=== PATIENT | female | born 1970 | race Caucasian/White ===

== ENCOUNTER 2017-01-26 13:04 | Emergency (ER) | payer MEDICAID ==
[~2017-01-26] VITALS: Ht 172.7 cm; Wt 104.0 kg
[2017-01-26 13:07] VITALS: BP 113/73; PULSE 71; RESP 18; TEMP 98.3; O2SAT 96
[2017-01-26] MEDS ORDERED: FENO1TAB76 PO (13:26)
[2017-01-26] MEDS ORDERED: ALPR.25 PO (13:26)
[2017-01-26] MEDS ORDERED: PRIL20CA9 PO (13:26)
[2017-01-26] MEDS ORDERED: ATEN25TA PO (13:26)
[2017-01-26] MEDS ORDERED: LISI10TA3 PO (13:26)
[2017-01-26] MEDS ORDERED: BENA25TA3 PO (13:26)
[2017-01-26] MEDS ORDERED: HYDR.5%T TOPICAL (13:40)
[2017-01-26] MEDS ORDERED: PRED20 PO (13:40)
[2017-01-26] MEDS ORDERED: VIST50CA PO (13:40)
[2017-01-26] MEDS ORDERED: PERM5CRE11 TOPICAL (13:40)
--- NOTE | 2017-01-26 13:45 | PD ---
HPI Chief Complaint: Skin Problem Time Seen by Provider: 13:40 Travel History International Travel<30 days: No Contact w/Intl Traveler<30days: No Traveled to known affect area: No History of Present Illness HPI 46-year-old female that presents to the ED for evaluation of itchy rash. Per patient she's had this for the past couple of days. Per patient nobody else in her house has this. She is visiting here for bike weak and states that she's had rashes before but not like this. 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 Per patient he started on the extremities and with moving to the chest. Again she denies any new contacts. No new creams. No new foods. She states that she used to live in [place] but hasn't lived in [place] for a while. She states that she staying at a friend's house and none of them have anything like her ears. She does have multiple allergies to medication. She is entirely and Benadryl with minimal relief. She has no other medical complaints at this time. No pain but very pruritic. Has been progressively getting worse for the past couple of days. PFSH Past Medical History Anxiety: Yes Cardiovascular Problems: Yes (HTN) Diminished Hearing: No Tetanus Vaccination: Unknown Influenza Vaccination: No ?: Not Past Surgical History Abdominal Surgery: Yes Appendectomy: Yes Cholecystectomy: Yes Hysterectomy: Yes Tonsillectomy: Yes Social History Alcohol Use: No Tobacco Use: No Substance Use: No Allergies-Medications (Allergen,Severity, Reaction): Coded Allergies: Bee Sting (Verified Allergy, Severe, Anaphylaxis, 01/26/17) Erythromycin (Verified Allergy, Severe, Rash, 01/26/17) Macrodantin (Verified Allergy, Severe, Rash, 01/26/17) Penicillin (Verified Allergy, Severe, Rash, 01/26/17) Theophylline (Verified Allergy, Severe, Anaphylaxis, 01/26/17) Uncoded Allergies: TEQUILA (Allergy, Severe, Anaphylaxis, 01/26/17) Reported Meds & Prescriptions Reported Meds & Active Scripts Active Reported Benadryl Allergy (Diphenhydramine HCl) 25 Mg Tab 50 Mg PO Q6H PRN Xanax (Alprazolam) 0.25 Mg Tab 0.25 Mg PO Q4H PRN Prilosec (Omeprazole) 20 Mg Cap 40 Mg PO DAILY Tricor (Fenofibrate) 48 Mg Tab 48 Mg PO DAILY Tke with food. Lisinopril 10 Mg Tab 10 Mg PO DAILY Atenolol 25 Mg Tab 75 Mg PO DAILY Review of Systems Except as stated in HPI: all other systems reviewed are Neg Physical Exam Narrative GENERAL: SKIN: Warm and dry. Patient has hives looking like rash on both bite like ch on the upper and lower extremities. Pruritic and not painful. No pustules. No lymphadenopathy noted. Motor mainly on the upper and lower extremities as well as in the chest. Seems with female nurse present. HEAD: Atraumatic. Normocephalic. EYES: Pupils equal and round. No scleral icterus. No injection or drainage. ENT: No nasal bleeding or discharge. Mucous membranes pink and moist. NECK: Trachea midline. No JVD. CARDIOVASCULAR: Regular rate and rhythm. RESPIRATORY: No accessory muscle use. Clear to auscultation. Breath sounds equal bilaterally. GASTROINTESTINAL: Abdomen soft, non-tender, nondistended. Hepatic and splenic margins not palpable. MUSCULOSKELETAL: Extremities without clubbing, cyanosis, or edema. No obvious deformities. NEUROLOGICAL: Awake and alert. No obvious cranial nerve deficits. Motor grossly within normal limits. Five out of 5 muscle strength in the arms and legs. Normal speech. PSYCHIATRIC: Appropriate mood and affect; insight and judgment normal. Data Data Last Documented VS Vital Signs Date Time Temp Pulse Resp B/P Pulse Ox O2 Delivery O2 Flow Rate FiO2 01/26/17 13:07 98.3 71 18 113/73 96 MDM Medical Decision Making Medical Screen Exam Complete: Yes Emergency Medical Condition: Yes Medical Record Reviewed: Yes Differential Diagnosis Insect bites versus allergic dermatitis versus dermatitis versus scabies versus bed bugs Narrative Course 46-year-old female that presents to the ED for evaluation of itchy rash. Patient was properly examined and was found to have signs and symptoms very consistent with bug bites. No sign of infection. There appeared to be very itchy and pruritic. Do not appear to be bed bugs or scabies at this time. Unclear bowel causing it. Does appear to be allergic. At this time recommend trial of prednisone, Vistaril, hydrocortisone and topical and Elimite topical to cover for any other organ is symptomatic causing this. I recommend washing everything before getting home to prevent bug from traveling with her. See ED if worst. Diagnosis Primary Impression: Insect bites Qualified Code: W57.XXXA - Insect bites, initial encounter Patient Instructions: General Instructions Additional Instructions: Take medications as prescribed. Follow with PCP. See ED worsening symptoms. Stop Benadryl he can be taking Vistaril. Wash all of her clothes in hot water as well as any sheets or luggage to you might have brought to make sure the bug does not travel with you. Med/Other Pt SpecificInfo: Prescription(s) given Scripts Permethrin Topical (Elimite Topical)5% Cream1 Applic TOPICAL ONCE #1 TUBE Ref 1 Prov:Abiel Berg MD 01/26/17 Hydrocortisone Topical 0.5% Oint1 Applic TOPICAL QID 14 Days Prov:Abiel Berg MD 01/26/17 Prednisone 20 Mg Tab20 Mg PO BID #10 TAB Prov:Abiel Berg MD 01/26/17 Hydroxyzine Pamoate (Vistaril)50 Mg Cap50 Mg PO TID PRN (ITCHING) #20 CAP Ref 0 Prov:Abiel Berg MD 01/26/17 Disposition: 01 DISCHARGE HOME Condition: Stable Manuel Rich Jan 26, 2017 13:45
== END 2017-01-26 13:54 | disposition home or self-care (01) ==
LOC: PHEFT 13:04
DX: S40.862A Insect bite (nonvenomous) of left upper arm, initial encounter (principal); S40.861A Insect bite (nonvenomous) of right upper arm, initial encounter; S80.862A Insect bite (nonvenomous), left lower leg, initial encounter; S80.861A Insect bite (nonvenomous), right lower leg, initial encounter; S20.369A Insect bite (nonvenomous) of unspecified front wall of thorax, initial encounter; I10 Essential (primary) hypertension; Z86.59 Personal history of other mental and behavioral disorders; W57.XXXA Bitten or stung by nonvenomous insect and other nonvenomous arthropods, initial encounter
CPT/HCPCS: 99282